=== PATIENT | male | born 1970 | race Caucasian/White ===

== ENCOUNTER 2017-03-12 14:55 | Emergency (ER) | payer SELFPAY ==
[2017-03-12] MEDS ORDERED: PREDNISONE 20 MG TABLET PO ONE (17:48)
--- NOTE | 2017-03-12 17:53 | ER Document Report ---
HPI - HPI Patient complains to provider of: Back pain Onset: Yesterday Onset/Duration: Gradual Quality of pain: Sharp Pain Level: 5 Context: States he has a history of a herniated disc with sciatica in the past. Patient states that his last flareup of low back pain was almost 3 years ago. Patient states that he was doing physical therapy yesterday and was doing multiple bending exercises that aggravated his low back pain. Patient states pain is typical of flare up that he has had in the past. Patient denies any fever or recent illness. Patient denies any urinary retention or incontinence. Patient was having physical therapy as part of his rehab after having a CVA with left- sided weakness. Associated Symptoms: Other - Back pain. denies: Fever Exacerbated by: Standing Relieved by: Denies Similar symptoms previously: Yes Recently seen / treated by doctor: No - ROS ROS below otherwise negative: Yes Systems Reviewed and Negative: Yes All other systems reviewed and negative - CONSTITUTIONAL Constitutional: DENIES: Fever, Chills - NEURO Neurology: DENIES: Headache, Weakness - GASTROINTESTINAL Gastrointestinal: DENIES: Patient vomiting - URINARY Urinary: DENIES: Dysuria, Urgency, Frequency Notes: no Retention or incontinence - REPRODUCTIVE Reproductive: DENIES: : - MUSCULOSKELETAL Musculoskeletal: REPORTS: Extremity pain, Back Pain. DENIES: Swelling Notes: pain to the posterior aspect of left lower extremity down to the level of his foot. - DERM Skin Color: Normal Skin Problems: None Past Medical History - General Information source: Patient - Social History Smoking Status: Never Smoker Cigarette use (# per day): No Frequency of alcohol use: None Drug Abuse: None Occupation: none Lives with: Alone Family History: Reviewed & Not Pertinent Patient has suicidal ideation: No Patient has homicidal ideation: No - Past Medical History Cardiac Medical History: Reports: Hx Hypercholesterolemia Pulmonary Medical History: Denies: Hx Tuberculosis Neurological Medical History: Reports: Hx Cerebrovascular Accident Renal/ Medical History: Denies: Hx Peritoneal Dialysis Musculoskeltal Medical History: Reports Other - chronic back pain Past Surgical History: Reports: Other - muscle repair RLE - Immunizations Immunizations up to date: Yes Hx Diphtheria, Pertussis, Tetanus Vaccination: Yes Vertical Provider Document - CONSTITUTIONAL Agree With Documented VS: Yes Exam Limitations: No Limitations General Appearance: WD/WN, No Apparent Distress - INFECTION CONTROL TRAVEL OUTSIDE OF THE [place] IN LAST 30 DAYS: No - HEENT HEENT: Atraumatic, Normocephalic - NECK Neck: Normal Inspection, Supple - RESPIRATORY Respiratory: Breath Sounds Normal, No Respiratory Distress, Chest Non-Tender O2 Sat by Pulse Oximetry: 92 - CARDIOVASCULAR Cardiovascular: Regular Rate, Regular Rhythm, No Murmur Pulses: Normal: Posterior tibial - BACK Back: Abnormal Inspection - lower Lumbar paraspinal tenderness, no step-off or deformity. negative: CVA Tenderness-Right, CVA Tenderness-Left - MUSCULOSKELETAL/EXTREMETIES Musculoskeletal/Extremeties: BENJAMIN FROM - NEURO Level of Consciousness: Awake, Alert, Appropriate Motor/Sensory: No Motor Deficit, No Sensory Deficit. negative: Weak Motor Strength RLE, Weak Motor Strength LLE Notes: no saddles anesthesia, no foot drop, normal gait - DERM Integumentary: Warm, Dry, No Rash Course - Re-evaluation Re-evalutation: 03/12/17 17:49 Presentation of a well appearing patient complaining of acute on chronic back pain. Discussed worsening s/s to return immediately for. Pt states that his pain and paresthesia symptoms are typical of previous flareups of his chronic low back pain. Pt plans to f/u with his primary care provider on tuesday for a recheck. The patient presents with low back pain without signs of spinal cord compression , cauda equina syndrome, infection, aneurysm, or other serious etiology. The patient is neurologically intact. Given the extremely risk of these diagnoses further testing and evaluation for these possibilities does not appear to be indicated at this time. Patient has been instructed to return if the symptoms worsen or change in any way. 03/12/17 17:53 The patient has been informed that they may have pre-hypertension or hypertension based on a blood pressure reading in the emergency department. I recommend that patient call the primary care provider listed on their discharge instructions or a physician of their choice by this week to arrange follow-up for further evaluation of possible pre-hypertension her hypertension. - Vital Signs Vital signs: Temp Pulse Resp BP Pulse Ox 97.7 F 79 20 146/82 H 92 03/12/17 15:06 03/12/17 15:06 03/12/17 15:06 03/12/17 15:06 03/12/17 15:06 Discharge - Discharge Clinical Impression: Elevated blood pressure reading Low back pain Qualifiers: Chronicity: unspecified Back pain laterality: unspecified Sciatica presence: with sciatica Sciatica laterality: sciatica of left side Qualified Code(s): M54.42 - Lumbago with sciatica, left side Condition: Stable Disposition: HOME, SELF-CARE Instructions: Ice Packs ([facility]), Warm Packs ([facility]), Oral Narcotic Medication ([facility]) , Low Back Pain ([facility]), Sciatica ([facility]) Additional Instructions: Return immediately for any new or worsening symptoms Your primary care provider on Tuesday for recheck. Your blood pressure was elevated today, your primary doctor can reevaluate this this week coming up. Prescriptions: Oxycodone HCl/Acetaminophen [Percocet 5-325 mg Tablet] 1 - 2 tab PO ASDIR PRN # 20 tablet PRN Reason: Prednisone [Deltasone 20 mg Tablet] 3 tab PO DAILY 4 Days Forms: Elevated Blood Pressure Referrals: KHALIF PRINGLE PA-C [Primary Care Provider] - 03/14/17
[2017-03-12] MEDS ORDERED: LIDOCAINE 5% (700 MG) TRANSDERMAL ADH..PATCH TP ONE (17:54)
[2017-03-12 18:10] VITALS: BP 149/81
== END 2017-03-12 18:05 | disposition home or self-care (01) ==
LOC: ER 14:55
DX: R03.0 Elevated blood-pressure reading, without diagnosis of hypertension (principal); M54.42 Lumbago with sciatica, left side; E78.00 Pure hypercholesterolemia, unspecified; Z86.73 Personal history of transient ischemic attack (TIA), and cerebral infarction without residual deficits; G89.29 Other chronic pain
CPT/HCPCS: 99283; J7512

== ENCOUNTER 2017-04-22 20:56 | Emergency (ER) | payer SELFPAY ==
--- NOTE | 2017-04-22 21:29 | ER Document Report ---
ED Extremity Problem, Lower - General Chief Complaint: Leg Swelling Stated Complaint: SWOLLEN RIGHT LEG Time Seen by Provider: 04/22/17 21:21 Notes: Patient is a 46-year-old male who comes emergency department for chief complaint of right calf pain, he states this happened over the past 24 hours, he actually awoke with this, he states that it hurts to walk. He denies any injury, redness, swelling, or history of the same. Patient does not smoke, he denies any recent travel or immobilization, denies personal or family history of blood clot. He denies fever/chills, nausea/vomiting. Patient does state that he is scheduled for lower back surgery and has a questionable mass on his lumbar spine. He takes daily aspirin and pain medication for the lower back pain. TRAVEL OUTSIDE OF THE [place] IN LAST 30 DAYS: No - Related Data Allergies/Adverse Reactions: No Known Allergies Allergy (Verified 03/12/17 15:06) Past Medical History - General Information source: Patient - Social History Smoking Status: Never Smoker Frequency of alcohol use: None Drug Abuse: None Lives with: Family Family History: Reviewed & Not Pertinent Patient has suicidal ideation: No Patient has homicidal ideation: No - Past Medical History Cardiac Medical History: Reports: Hx Hypercholesterolemia Pulmonary Medical History: Denies: Hx Tuberculosis Neurological Medical History: Reports: Hx Cerebrovascular Accident Renal/ Medical History: Denies: Hx Peritoneal Dialysis Past Surgical History: Reports: Other - muscle repair RLE - Immunizations Immunizations up to date: Yes Hx Diphtheria, Pertussis, Tetanus Vaccination: Yes Review of Systems - Review of Systems Constitutional: No symptoms reported EENT: No symptoms reported Cardiovascular: See HPI Respiratory: No symptoms reported Gastrointestinal: No symptoms reported Genitourinary: No symptoms reported Male Genitourinary: No symptoms reported Musculoskeletal: See HPI Skin: No symptoms reported Hematologic/Lymphatic: No symptoms reported Neurological/Psychological: No symptoms reported Physical Exam - Vital signs Vitals: Temp Pulse Resp BP Pulse Ox 98.2 F 93 20 132/82 H 96 04/22/17 21:01 04/22/17 21:01 04/22/17 21:01 04/22/17 21:01 04/22/17 21:01 Interpretation: Normal - General General appearance: Appears well, Alert In distress: None - HEENT Head: Normocephalic, Atraumatic Eyes: Normal Conjunctiva: Normal Extraocular movements intact: Yes Eyelashes: Normal Pupils: PERRL Sinus: Normal Nasal: Normal Mouth/Lips: Normal Mucous membranes: Normal Pharynx: Normal Neck: Normal - Respiratory Respiratory status: No respiratory distress Chest status: Nontender Breath sounds: Normal Chest palpation: Normal - Cardiovascular Rhythm: Regular Heart sounds: Normal auscultation Murmur: No - Abdominal Inspection: Normal Distension: No distension Bowel sounds: Normal Tenderness: Nontender. No: Tender, Guarding Organomegaly: No organomegaly - Back Back: Normal, Nontender. No: Tender - Extremities General upper extremity: Normal inspection, Nontender, Normal color, Normal ROM , Normal temperature General lower extremity: Other - old scar behind the right knee and calf from an old surgical procedure on the knee. There is an area of tightness and mild tenderness, no abnormal erythema, heat, no swelling of the lower extremity. Normal distal pulse and sensation. ROM of the hip, knee, ankle are normal. No: Ashia's sign - negative - Neurological Neuro grossly intact: Yes Cognition: Normal Orientation: AAOx4 Isabella Coma Scale Eye Opening: Spontaneous [place] Coma Scale Verbal: Oriented Isabella Coma Scale Motor: Obeys Commands [place] Coma Scale Total: 15 Speech: Normal Motor strength normal: LUE, RUE, LLE, RLE Sensory: Normal - Psychological Associated symptoms: Normal affect, Normal mood - Skin Skin Temperature: Warm Skin Moisture: Dry Skin Color: Normal Course - Re-evaluation Re-evalutation: Patient has an old scar behind the right knee and calf from an old surgical procedure on the knee. There is an area of tightness and mild tenderness, no abnormal erythema, heat, no swelling of the lower extremity. Venous Doppler ultrasound is negative for clot. No evidence of infection. Appears to be musculoskeletal in nature most likely. Discussed results with patient, discussed follow-up recommendations and return precautions. Patient states satisfaction and agreement. - Vital Signs Vital signs: Temp Pulse Resp BP Pulse Ox 98.2 F 79 16 130/74 H 95 04/22/17 21:01 04/22/17 23:10 04/22/17 23:10 04/22/17 23:10 04/22/17 23:10 Discharge - Discharge Clinical Impression: Right calf pain Condition: Stable Disposition: HOME, SELF-CARE Additional Instructions: No evidence of blood clot or abnormality on your Doppler ultrasound tonight. Apply heat to the area, consider [id number] anti-inflammatory such as ibuprofen or naproxen, continue your pain medication. Follow-up with your provider. Return to emergency department for any concerning or worsening symptoms including severe swelling, redness, fever, or any other concerning symptoms. Referrals: KHALIF PRINGLE PA-C [Primary Care Provider] - Follow up as needed
[2017-04-22 23:12] VITALS: BP 130/74
--- NOTE | 2017-04-24 12:41 | XCELERA REPORT ---
[address] [address] Lower Extremity Venous Evaluation Name: ESTEFANI DONOVAN Age: 46 yrs Gender: Male : 1970 Patient Status: Emergency Patient Location: ER Study Date: 04/22/2017 10:11 PM Procedure: Color flow and duplex imaging of the veins of the right lower extremity as well as the left Common Femoral vein. Reason For Study: RLE calf pain Ordering Physician: DESTINEE HURTADO Performed By: Jenna Grace Right Sided Venous Evaluation Normal vessel filling wall to wall, compression and augmentation as well as Colour flow down to the infrageniculate veins. Left Sided Venous Evaluation The left common femoral vein is fully compressible. Spontaneous and phasic flow is present in the left common femoral vein. Critical Findings Called in to DUKE Hurtado. Interpretation Summary No duplex evidence of DVT or obstruction in the right lower extremity nor in the left Common Femoral vein. : DESTINEE HURTADO > Ross Massey
== END 2017-04-22 23:12 | disposition home or self-care (01) ==
LOC: ER 20:56
DX: M79.661 Pain in right lower leg (principal); M79.89 Other specified soft tissue disorders; E78.00 Pure hypercholesterolemia, unspecified; Z86.73 Personal history of transient ischemic attack (TIA), and cerebral infarction without residual deficits
CPT/HCPCS: 93971; 99283